=== PATIENT | male | born 1965 ===

== ENCOUNTER 2016-09-06 12:47 | Emergency (ER) | payer OTHER ==
--- NOTE | 2016-09-06 13:59 | DIAGNOSTIC IMAGING REPORT ---
PROCEDURE: XR CHEST 2 VIEW INDICATION: COUGH TECHNIQUE: PA and lateral views. COMPARISON: None. FINDINGS: Lungs are clear. Heart and mediastinum are normal. Thorax is normal. IMPRESSION: 1. Negative chest.
--- NOTE | 2016-09-06 14:09 | ED CLINICAL REPORT ---
Clinical Report - Physicians/Mid Levels [facility] [address] [place] [address] 09/06/2016 12:47 Patient: LUIS DOE Time Seen: 13:19 Sep 06 2016. Arrived- By private vehicle. Historian- patient. HISTORY OF PRESENT ILLNESS Chief Complaint: COUGH. This started 4 weeks ago and is still present . Not worsening. The illness is described as mild. The patient has had a cough. No difficulty breathing, chest discomfort or pain, fever or chills. No sore throat, nasal congestion or discharge or ear pain. Additional history - No known contact with a sick individual. (Patient developed a cough, runny nose, sore throat and bodyaches about 4 weeks ago. He says the majorityof his symptoms resolved but the cough has persisted. 10 days ago he was prescribed a Z-Lionel. He says it helped a little bit but his cough has persisted.). Recent medical care: The patient was seen recently at another facility in a clinic. Not hospitalized. REVIEW OF SYSTEMS No chills, fever, ear pain, runny nose or sore throat. No calf pain, difficulty breathing, pedal edema, palpitations or abdominal pain. No urinary frequency, hematuria, back pain, skin rash or dizziness. No difficulty with urination. The patient has had a cough. PAST HISTORY See nurses notes. Diabetes mellitus. No history of lung disease. SOCIAL HISTORY Never smoker. No drug use. ADDITIONAL NOTES The nursing notes have been reviewed. PHYSICAL EXAM Appearance: Alert. No acute distress. Eyes: Pupils equal, round and reactive to light. Eyes normal inspection. ENT: Nose normal. Pharynx normal. Uvula midline. Neck: Normal inspection. Neck supple. No lymphadenopathy. CVS: Normal heart rate and rhythm. Heart sounds normal. Respiratory: No respiratory distress. Breath sounds normal. No rales, rhonchi or wheezes. Back: Normal inspection. Skin: Skin warm and dry. No rash. Extremities: Extremities exhibit normal ROM. No lower extremity edema. Neuro: Oriented X 3. LABS, X-RAYS, AND EKG Chest X-ray: Normal Chest X-Ray. PROGRESS AND PROCEDURES Course of Care: 13:43 09/06/16. Patient stable. Vital signs within normal limits lungs are clear. No significant improvement with antibiotics as likely viral. Will get chest x-ray for reassurance and discharged home with symptomatic treatment if normal. 14:13 09/06/16. Chest x-ray within normal limits. We'll discharge home. Follow up with his primary care providerin 10-14 days if not improving as expected. Disposition: Discharged. Condition: good. CLINICAL IMPRESSION Acute viral bronchitis. INSTRUCTIONS Rest at home for two days until better. Drink plenty of fluids. Warnings: CONTROLLED SUBSTANCE WARNINGS. GENERAL WARNINGS: Return or contact your physician immediately if your condition worsens or changes unexpectedly, if not improving as expected, or if other problems arise. Specifically return if vomiting, breathing difficulty or fever worsens. Prescription Medications: Tylenol with Codeine Tylenol #3 (30 mg / 300 mg). No refill. Substitution is permissible. (Sig: tablet by mouth at bedtime as needed for cough and body aches. Dispense #8 tablets.) OTC Medications: Mucinex (available over the counter): 600 mg tablet: take 1 tablet orally every 12 hours for 5 days. Dispense ten (10). No refill. Follow-up: Follow up with your doctor in two weeks if not better. Understanding of the discharge instructions verbalized by patient. (Electronically signed by Dhruv Barajas, 09/06/2016 15:49)
--- NOTE | 2016-09-06 14:10 | ED NURSING NOTES ---
Clinical Report - Nurses [facility] [address] [place] [address] 09/06/2016 12:47 Patient: LUIS DOE TRIAGE Triage time 1253. Acuity: LEVEL 3. Chief Complaint: COUGH and RUNNY NOSE. Alert. STEPHANIE COMA SCORE: Stephanie Coma Scale: 15- eyes open spontaneously (4); best verbal response- oriented x 4 (5); best motor response- obeys commands (6). --13:06 Renée Pike R.N. 12:56 09/06/16. BP: 138/78. HR: 89. RR: 20 (unlabored). O2 saturation: 99% on room air. Temp: 97.9 F (oral). Pain level now: 0/10. --13:06 Renée Pike R.N. Weight: 108.8 kg stated. Height/Length: 68 inches Per Patient. BMI: 36.5. --12:53 Renée Pike R.N. Medications Aspir-Low Oral (Tablet Delayed Release 81 mg) 1 tablet, daily. --13:00 Renée Pike R.N. Lisinopril Oral 5 mg, daily. --13:01 Renée Pike R.N. Atorvastatin Calcium Oral (Tablet 40 mg) 1 tablet, daily. --13:01 Renée Pike R.N. Pioglitazone HCl Oral (Tablet 45 mg) 1 tablet, daily. --13:01 Renée Pike R.N. Glucotrol XL Oral 10 mg, daily. --13:02 Renée Pike R.N. Acetaminophen Oral (Capsule 500 mg) 1 capsule, 3x a day. --13:02 Renée Pike R.N. MetFORMIN HCl ER Oral 1000 mg, 2 x day. --13:03 Renée Pike R.N. Januvia Oral (Tablet 100 mg) 1 tablet, daily. --13:03 Renée Pike R.N. Albuterol Sulfate Inhalation 2 puffs, PRN, shortness of breath. --13:04 Renée Pike R.N. Allergies No Known Drug Allergy. --13:05 Renée Pike R.N. Medication/allergy information source: the patient. --13:06 Renée Pike R.N. History Arrived by private vehicle. Historian: patient. Accompanied by family. Primary physician (Yvonne Cortes). ( pt c/o cough x 2-3 weeks. pt treated for bronchitis and finished Zpak on Saturday.). Onset. (2-3 weeks). 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 PAST MEDICAL HX: Diabetes mellitus. SOCIAL HX: Never smoker. No alcohol use. ABUSE ASSESSMENT: No report of abuse. FALL RISK ASSESSMENT: Fall risk assessment completed. No fall risk identified. NUTRITIONAL RISK ASSESSMENT: The nutritional risk assessment revealed no deficiencies. FUNCTIONAL ASSESSMENT: Functional assessment: no impairments noted. LEARNING NEEDS ASSESSMENT: The learning needs assessment revealed no barriers. SKIN INTEGRITY ASSESSMENT: Skin integrity risk assessment completed. No skin integrity risk identified. --13:06 Renée Pike R.N. PROBLEMS: Contusion. Diabetes Mellitus. --13:06 Renée Pike R.N. ADDITIONAL SURGERIES: Shoulder Surgery. --13:06 Renée Pike R.N. Interventions ID band on patient. To treatment room. --13:06 Renée Pike R.N. PHYSICAL ASSESSMENT 13:15. Ambulatory to room. GENERAL / NEURO / PSYCH: Alert. Oriented X 4. Appears in no acute distress. HEENT: Mucous membranes are pink. RESPIRATORY: Respirations not labored. CVS: Capillary refill less than 2 seconds. SKIN: Skin is warm and dry. Normal skin turgor. --13:52 Renée Pike R.N. NURSING PROGRESS NOTES Patient gowned. Head of bed elevated. Two patient identifiers checked. Call light placed in reach. Side rails up x 1. Bed placed in lowest position. Brakes of bed on. Patient ready for evaluation. --13:07 Renée Pike R.N. Point of care testing: performed by nurse. Glucose: 193. --13:14 Renée Pike R.N. 14:25. Reassessment after procedure. He is calm and resting quietly. Overall patient status is the same- he states feels the same. RESPIRATORY: No respiratory distress. SKIN: Skin is warm and dry. --14:35 Brina Gillespie R.N. DISPOSITION / DISCHARGE Departure time: 1425. Condition at departure: stable. No learning barriers present. Discharge instructions provided and reviewed with the patient. Reviewed medication(s). Prescription(s) given to the patient. Patient verbalized understanding. Written instructions provided in Arabic. The patient was discharged home and accompanied by telecasting engineer. He left the Emergency Department ambulatory and via private vehicle. FALL RISK ASSESSMENT: Fall risk assessment completed. No fall risk identified. --14:34 Brina Gillespie R.N. 14:29 09/06/16. BP: 124/72. HR: 87. RR: 16. O2 saturation: 97% on room air. Pain level now: 0/10. --14:34 Brina Gillespie R.N. Locked/Released at 09/06/2016 14:37 by Brina Gillespie R.N.
--- NOTE | 2016-09-06 14:10 | ED ORDER SUMMARY ---
..... Patient: LUIS DOE OrderSheet [facility] VisitID: [id number] [address] [place] [address] 51y, M Registration Date/Time: 09/06/2016 ORDER SHEET Weight: 108.8 kg (stated) Allergies: No Known Drug Allergy GENERAL ORDERS: Chest 2V (Uri sxs 4 weeks ago now w/ persistent cough despite Abx. Thanks.) Urgent (13:37 09/06/2016 Nicaonr) ([facility] 13:51 V[place]) (14:34 Stef Rodrigez) MEDICATION ORDERS: IV FLUIDS: ORDER SHEET NOTES: [Electronically signed by Brina Gillespie R.N. (14:37 09/06/2016)] [Electronically signed by Dhruv Barajas (15:49 09/06/2016)] [Electronically locked/signed by Brina Gillespie R.N. (14:37 09/06/2016)]
--- NOTE | 2016-09-06 14:10 | ED NURSING NOTES ---
Clinical Report - Nurses [facility] [address] [place] [address] 09/06/2016 12:47 Patient: LUIS DOE TRIAGE Triage time 1253. Acuity: LEVEL 3. Chief Complaint: COUGH and RUNNY NOSE. Alert. STEPHANIE COMA SCORE: Stephanie Coma Scale: 15- eyes open spontaneously (4); best verbal response- oriented x 4 (5); best motor response- obeys commands (6). --13:06 Renée Pike R.N. 12:56 09/06/16. BP: 138/78. HR: 89. RR: 20 (unlabored). O2 saturation: 99% on room air. Temp: 97.9 F (oral). Pain level now: 0/10. --13:06 Renée Pike R.N. Weight: 108.8 kg stated. Height/Length: 68 inches Per Patient. BMI: 36.5. --12:53 Renée Pike R.N. Medications Aspir-Low Oral (Tablet Delayed Release 81 mg) 1 tablet, daily. --13:00 Renée Pike R.N. Lisinopril Oral 5 mg, daily. --13:01 Renée Pike R.N. Atorvastatin Calcium Oral (Tablet 40 mg) 1 tablet, daily. --13:01 Renée Pkie R.N. Pioglitazone HCl Oral (Tablet 45 mg) 1 tablet, daily. --13:01 Renée Pike R.N. Glucotrol XL Oral 10 mg, daily. --13:02 Renée Pike R.N. Acetaminophen Oral (Capsule 500 mg) 1 capsule, 3x a day. --13:02 Renée Pike R.N. MetFORMIN HCl ER Oral 1000 mg, 2 x day. --13:03 Renée Pike R.N. Januvia Oral (Tablet 100 mg) 1 tablet, daily. --13:03 Renée Pike R.N. Albuterol Sulfate Inhalation 2 puffs, PRN, shortness of breath. --13:04 Renée Pike R.N. Allergies No Known Drug Allergy. --13:05 Renée Pike R.N. Medication/allergy information source: the patient. --13:06 Renée Pike R.N. History Arrived by private vehicle. Historian: patient. Accompanied by family. Primary physician (Yvonne Cortes). ( pt c/o cough x 2-3 weeks. pt treated for bronchitis and finished Zpak on Saturday.). Onset. (2-3 weeks). 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 PAST MEDICAL HX: Diabetes mellitus. SOCIAL HX: Never smoker. No alcohol use. ABUSE ASSESSMENT: No report of abuse. FALL RISK ASSESSMENT: Fall risk assessment completed. No fall risk identified. NUTRITIONAL RISK ASSESSMENT: The nutritional risk assessment revealed no deficiencies. FUNCTIONAL ASSESSMENT: Functional assessment: no impairments noted. LEARNING NEEDS ASSESSMENT: The learning needs assessment revealed no barriers. SKIN INTEGRITY ASSESSMENT: Skin integrity risk assessment completed. No skin integrity risk identified. --13:06 Renée Pike R.N. PROBLEMS: Contusion. Diabetes Mellitus. --13:06 Renée Pike R.N. ADDITIONAL SURGERIES: Shoulder Surgery. --13:06 Renée Pike R.N. Interventions ID band on patient. To treatment room. --13:06 Renée Pike R.N. PHYSICAL ASSESSMENT 13:15. Ambulatory to room. GENERAL / NEURO / PSYCH: Alert. Oriented X 4. Appears in no acute distress. HEENT: Mucous membranes are pink. RESPIRATORY: Respirations not labored. CVS: Capillary refill less than 2 seconds. SKIN: Skin is warm and dry. Normal skin turgor. --13:52 Renée Pike R.N. NURSING PROGRESS NOTES Patient gowned. Head of bed elevated. Two patient identifiers checked. Call light placed in reach. Side rails up x 1. Bed placed in lowest position. Brakes of bed on. Patient ready for evaluation. --13:07 Renée Pike R.N. Point of care testing: performed by nurse. Glucose: 193. --13:14 Renée Pike R.N. 14:25. Reassessment after procedure. He is calm and resting quietly. Overall patient status is the same- he states feels the same. RESPIRATORY: No respiratory distress. SKIN: Skin is warm and dry. --14:35 Brina Gillespie R.N. DISPOSITION / DISCHARGE Departure time: 1425. Condition at departure: stable. No learning barriers present. Discharge instructions provided and reviewed with the patient. Reviewed medication(s). Prescription(s) given to the patient. Patient verbalized understanding. Written instructions provided in Slovak. The patient was discharged home and accompanied by silica filter operator. He left the Emergency Department ambulatory and via private vehicle. FALL RISK ASSESSMENT: Fall risk assessment completed. No fall risk identified. --14:34 Birna Gillespie R.N. 14:29 09/06/16. BP: 124/72. HR: 87. RR: 16. O2 saturation: 97% on room air. Pain level now: 0/10. --14:34 Brina Gillespie R.N. Locked/Released at 09/06/2016 14:37 by Brina Gillespie R.N.
--- NOTE | 2016-09-06 14:10 | ED ORDER SUMMARY ---
..... Patient: LUIS DOE OrderSheet [facility] VisitID: [id number] [address] [place] [address] 51y, M Registration Date/Time: 09/06/2016 ORDER SHEET Weight: 108.8 kg (stated) Allergies: No Known Drug Allergy GENERAL ORDERS: Chest 2V (Uri sxs 4 weeks ago now w/ persistent cough despite Abx. Thanks.) Urgent (13:37 09/06/2016 Nicanor) ([facility] 13:51 Viji) (14:34 Stef Rodrigez) MEDICATION ORDERS: IV FLUIDS: ORDER SHEET NOTES: [Electronically signed by Brina Gillespie R.N. (14:37 09/06/2016)] [Electronically signed by Dhruv Barajas (15:49 09/06/2016)] [Electronically locked/signed by Brina Gillespie R.N. (14:37 09/06/2016)]
--- NOTE | 2016-09-06 15:50 | ED MAR SUMMARY ---
..... Medication Administration Record [facility] [address], [place] [id number] Patient: LUIS DOE Visit ID: [id number] 51y, M Weight: 108.8 kg Height/Length: 68 in BMI: 36.5 ALLERGIES: No Known Drug Allergy
--- NOTE | 2016-09-06 15:50 | ED MAR SUMMARY ---
..... Medication Administration Record [facility] [address] [id number] Patient: LUIS DOE Visit ID: [id number] 51y, M Weight: 108.8 kg Height/Length: 68 in BMI: 36.5 ALLERGIES: No Known Drug Allergy
--- NOTE | 2016-09-06 15:50 | ED MED RECONCILIATION SUMMARY ---
Patient: LUIS DOE Medication Reconciliation Report [facility] VisitID: [id number] [address] [place] [address] 51y, M Registration Date/Time: 09/06/2016 Weight: 108.8 kg Height/Length: 68 in. BMI: 36.5 ALLERGIES: No Known Drug Allergy The patient's Home Medications are listed below: THE FOLLOWING MEDICATIONS NEED TO BE RECONCILED: Acetaminophen Oral (500 mg) 1 capsule, 3x a day Albuterol Sulfate Inhalation 2 puffs, PRN, shortness of breath Aspir-Low Oral (81 mg) 1 tablet, daily Atorvastatin Calcium Oral (40 mg) 1 tablet, daily Glucotrol XL Oral 10 mg, daily Januvia Oral (100 mg) 1 tablet, daily Lisinopril Oral 5 mg, daily MetFORMIN HCl ER Oral 1000 mg, 2 x day Pioglitazone HCl Oral (45 mg) 1 tablet, daily The source(s) of the original Home Medication information: patient The following Medications were given to the patient in the Emergency Department: None. The following Medications were prescribed to the patient: Tylenol with Codeine Tylenol #3 (30 mg / 300 mg). No refill. Substitution is permissible.(Sig: tablet by mouth at bedtime as needed for cough and body aches. Dispense #8 tablets.) -- Dhruv Barajas Mucinex (available over the counter): 600 mg tablet: take 1 tablet orally every 12 hours for 5 days. Dispense ten (10). No refill. -- Dhruv Barajas
--- NOTE | 2016-09-06 15:50 | ED DISCHARGE INSTRUCTIONS ---
Patient: LUIS DOE General Instructions [facility] VisitID: [id number] [place] [address] 51y, M Registration Date/Time: 09/06/2016 Acute viral bronchitis. INSTRUCTIONS Rest at home for two days until better. Drink plenty of fluids. Warnings: CONTROLLED SUBSTANCE WARNINGS. GENERAL WARNINGS: Return or contact your physician immediately if your condition worsens or changes unexpectedly, if not improving as expected, or if other problems arise. Specifically return if vomiting, breathing difficulty or fever worsens. Prescription Medications: Tylenol with Codeine Tylenol #3 (30 mg / 300 mg). No refill. Substitution is permissible. (Sig: tablet by mouth at bedtime as needed for cough and body aches. Dispense #8 tablets.) OTC Medications: Mucinex (available over the counter): 600 mg tablet: take 1 tablet orally every 12 hours for 5 days. Dispense ten (10). No refill. Follow-up: Follow up with your doctor in two weeks if not better. Understanding of the discharge instructions verbalized by patient. ADDITIONAL INFORMATION Bronchitis, Viral (Adult: No Abx) You have a viral bronchitis. This illness is contagious during the first few days and is spread through the air by coughing and sneezing, or by direct contact (touching the sick person and then touching your own eyes, nose, or mouth). Most viral illnesses resolve within 10-14 days with rest and simple home remedies, although they may sometimes last for several weeks. Antibiotics will not kill a virus and are generally not prescribed for this condition. Home Care: If symptoms are severe, rest at home for the first 2-3 days. When resuming activity, don't let yourself become overly tired. Do not smoke and avoid the smoke of others. You may use acetaminophen (Tylenol) or ibuprofen (Motrin, Advil) to control fever or pain, unless another pain medicine was prescribed. [NOTE: If you have chronic liver or kidney disease or ever had a stomach ulcer or GI bleeding, talk with your doctor before using these medicines.] (Aspirin should never be used in anyone under 18 years of age who is ill with a fever. It may cause severe liver damage.) Your appetite may be poor so a light diet is fine. Avoid dehydration by drinking 6-8 glasses of fluids per day (water, sport drinks such as Gatorade, juices, tea, soup, etc.). Extra fluids will help loosen secretions in the nose and lung. Acmb-dkr-[id number] cold medicines will not shorten the length of the illness, but may be helpful for cough (Robitussin DM), sore throat (Chloraseptic lozenges or spray), nasal and sinus congestion (Actifed or Sudafed). [NOTE: Do not use decongestants if you have high blood pressure.] Follow Up with your doctor or as directed by our staff if you are not improving over the next week. NOTE: If you are age 65 or older, or if you have chronic asthma or COPD, we recommend a PNEUMOCOCCAL VACCINATION every five years and a yearly INFLUENZAVACCINATION (FLU-SHOT) every . Ask your doctor about this. If you had an X-ray, a radiologist will review it. You will be notified of any new findings that may affect your care.] Get Prompt Medical Attention if any of the following occur: Fever over 100.4F (38.0C) for more than three days Trouble breathing, wheezing or pain with breathing Coughing up blood or increased amounts of colored sputum Weakness, drowsiness, headache, facial pain, ear pain or a stiff neck Acetaminophen, Codeine Phosphate Oral tablet What is this medicine? ACETAMINOPHEN; CODEINE (a set a PILO edward fen; KOE jovanny) is a pain reliever. It is used to treat mild to moderate pain. How should I use this medicine? Take this medicine by mouth with a full glass of water. Follow the directions on the prescription label. If the medicine upsets your stomach, take the medicine with food or milk. Do not take more medicine than you are told to take. Talk to your pharmaceutical sales specialist regarding the use of this medicine in children. Special care may be needed. What side effects may I notice from receiving this medicine? Side effects that you should report to your doctor or health care team assistant as soon as possible: allergic reactions like skin rash, itching or hives, swelling of the face, lips, or tongue breathing difficulties, wheezing confusion light headedness or fainting spells severe stomach pain yellowing of the skin or the whites of the eyes Side effects that usually do not require medical attention (report to your doctor or health care team assistant if they continue or are bothersome): dizziness drowsiness nausea, vomiting What may interact with this medicine? alcohol antihistamines benztropine drugs for bladder problems like solifenacin, trospium, oxybutynin, tolterodine, hycosamine, and methscopolamine drugs for breathing problems like ipratropium and tiotropium drugs for certain stomach or intestine problems like propantheline, homatropine methylbromide, glycopyrrolate, atropine, belladonna, and dicyclomine medicines for depression, anxiety, or psychotic disturbances medicines for sleep muscle relaxants naltrexone narcotic medicines (opiates) for pain phenothiazines like perphenazine, thioridazine, chlorpromazine, mesoridazine, fluphenazine, prochlorperazine, promazine, trifluoperazine scopolamine tramadol trihexyphenidyl What if I miss a dose? If you miss a dose, take it as soon as you can. If it is almost time for your next dose, take only that dose. Do not take double or extra doses. Where should I keep my medicine? Keep out of the reach of children. This medicine can be abused. Keep your medicine in a safe place to protect it from theft. Do not share this medicine with anyone. Selling or giving away this medicine is dangerous and against the law. Store at room temperature between 15 and 30 degrees C (59 and 86 degrees F). Protect from light. Keep container tightly closed. Throw away any unused medicine after the expiration date. Discard unused medicine and used packaging carefully. Pets and children can be harmed if they find used or lost packages. What should I tell my health care provider before I take this medicine? They need to know if you have any of these conditions: brain tumor Crohn's disease, inflammatory bowel disease, or ulcerative colitis drink more than 3 alcohol containing drinks per day drug abuse or addiction head injury heart or circulation problems kidney disease or problems going to the bathroom liver disease lung disease, asthma, or breathing problems an unusual or allergic reaction to acetaminophen, codeine, salicylates, other opioid analgesics, other medicines, foods, dyes, or preservatives or trying to get breast-feeding What should I watch for while using this medicine? Tell your doctor or health care team assistant if your pain does not go away, if it gets worse, or if you have new or a different type of pain. You may develop tolerance to the medication. Tolerance means that you will need a higher dose of the medication for pain relief. Tolerance is normal and is expected if you take the medicine for a long time. Do not suddenly stop taking your medicine because you may develop a severe reaction. Your body becomes used to the medicine. This does NOT mean you are addicted. Addiction is a behavior related to getting and using a drug for a non medical reason. If you have pain, you have a medical reason to take pain medicine. Your doctor will tell you how much medicine to take. If your doctor wants you to stop the medicine, the dose will be slowly lowered over time to avoid any side effects. You may get drowsy or dizzy. Do not drive, use machinery, or do anything that needs mental alertness until you know how this medicine affects you. Do not stand or sit up quickly, especially if you are an older patient. This reduces the risk of dizzy or fainting spells. Alcohol may interfere with the effect of this medicine. Avoid alcoholic drinks. There are different types of narcotic medicines (opiates) for pain. If you take more than one type at the same time, you may have more side effects. Give your health care provider a list of all medicines you use. Your doctor will tell you how much medicine to take. Do not take more medicine than directed. Call emergency for help if you have problems breathing. The medicine will cause constipation. Try to have a bowel movement at least every 2 to 3 days. If you do not have a bowel movement for 3 days, call your doctor or health care team assistant. Do not take Tylenol (acetaminophen) or medicines that have acetaminophen with this medicine. Too much acetaminophen can be very dangerous. Many nonprescription medicines contain acetaminophen. Always read the labels carefully to avoid taking more acetaminophen. Immediately call your physician or get emergency help if you are breast-feeding and your baby is sleepier than usual, is limp, or has difficulty or breathing. Guaifenesin Oral syrup What is this medicine? GUAIFENESIN (gwye FEN e sin) is an expectorant. It helps to thin mucous and make coughs more productive. This medicine is used to treat coughs caused by colds or the flu. It is not intended to treat chronic cough caused by smoking, asthma, emphysema, or heart failure. How should I use this medicine? Take this medicine by mouth. Follow the directions on the prescription label. Use a specially marked spoon or container to measure your dose. Household spoons are not accurate. Take your medicine at regular intervals. Do not take it more often than directed. Talk to your pharmaceutical sales specialist regarding the use of this medicine in children. Special care may be needed. What side effects may I notice from receiving this medicine? Side effects that you should report to your doctor or health care team assistant as soon as possible: allergic reactions like skin rash, itching or hives, swelling of the face, lips, or tongue Side effects that usually do not require medical attention (report to your doctor or health care team assistant if they continue or are bothersome): dizziness headache stomach upset What may interact with this medicine? Interactions are not expected. What if I miss a dose? If you miss a dose, take it as soon as you can. If it is almost time for your next dose, take only that dose. Do not take double or extra doses. Where should I keep my medicine? Keep out of the reach of children. Store at room temperature between 20 and 25 degrees C (68 and 77 degrees F). Do not freeze. Keep container tightly closed. Throw away any unused medicine after the expiration date. What should I tell my health care provider before I take this medicine? They need to know if you have any of these conditions: diabetes fever kidney disease an unusual or allergic reaction to guaifenesin, other medicines, foods, dyes, or preservatives or trying to get breast-feeding What should I watch for while using this medicine? Do not treat a cough for more than 1 week without consulting your doctor or health care team assistant. If you also have a high fever, skin rash, continuing headache, or sore throat, see your doctor. For best results, drink 6 to 8 glasses water daily while you are taking this medicine. You have been given the following additional information: Bronchitis, No Antibiotic (Adult) Acetaminophen, Codeine Phosphate Oral tablet Guaifenesin Oral syrup Rest at home for two days until better. (Electronically signed by Dhruv Barajas, 09/06/2016 15:49)
--- NOTE | 2016-09-06 15:50 | ED MED RECONCILIATION SUMMARY ---
Patient: LUIS DOE Medication Reconciliation Report [facility] VisitID: [id number] [address] [place] [address] 51y, M Registration Date/Time: 09/06/2016 Weight: 108.8 kg Height/Length: 68 in. BMI: 36.5 ALLERGIES: No Known Drug Allergy The patient's Home Medications are listed below: THE FOLLOWING MEDICATIONS NEED TO BE RECONCILED: Acetaminophen Oral (500 mg) 1 capsule, 3x a day Albuterol Sulfate Inhalation 2 puffs, PRN, shortness of breath Aspir-Low Oral (81 mg) 1 tablet, daily Atorvastatin Calcium Oral (40 mg) 1 tablet, daily Glucotrol XL Oral 10 mg, daily Januvia Oral (100 mg) 1 tablet, daily Lisinopril Oral 5 mg, daily MetFORMIN HCl ER Oral 1000 mg, 2 x day Pioglitazone HCl Oral (45 mg) 1 tablet, daily The source(s) of the original Home Medication information: patient The following Medications were given to the patient in the Emergency Department: None. The following Medications were prescribed to the patient: Tylenol with Codeine Tylenol #3 (30 mg / 300 mg). No refill. Substitution is permissible.(Sig: tablet by mouth at bedtime as needed for cough and body aches. Dispense #8 tablets.) -- Dhruv Barajas Mucinex (available over the counter): 600 mg tablet: take 1 tablet orally every 12 hours for 5 days. Dispense ten (10). No refill. -- Dhruv Barajas
== END 2016-09-06 14:25 | disposition home or self-care (01) ==
LOC: ED SRH 12:47
DX: J20.9 Acute bronchitis, unspecified (principal); E11.9 Type 2 diabetes mellitus without complications